=== PATIENT | female | born 1985 | race Caucasian/White ===

== ENCOUNTER 2016-03-29 10:22 | Inpatient (IN) ==
[2016-03-29] MEDS ORDERED: ACETAMINOPHEN 325 MG TABLET PO PRN (10:43)
[2016-03-29 12:06] LABS: Basophils % 0.2 % (0.0-0.8); Eosinophils # 0.1 10*3/uL (0.0-0.87); Eosinophils % 1.1 % (0.00-10.9); Hematocrit 33.4 VOL% (35.7-47.0); Hemoglobin 10.9 GM/DL (12.0-16.0); Immature Granulocytes % 1.7 %; Immature Granulocytes Absolute 0.17 #; Lymphocytes # 1.7 10*3/uL (1.4-4.0); Lymphocytes % 16.8 % (21.3-54.2); Mean Corpuscular HGB Conc 32.6 GM/DL (32-36); Mean Corpuscular Hemoglobin 31 PG (27-34); Mean Corpuscular Volume 93.6 FL (87-102); Mean Platelet Volume 11.9 FL (9.6-12.0); Monocytes # 0.4 10*3/uL (0.11-0.8); Monocytes % 4.2 % (1.7-12.7); Neutrophils # 7.8 10*3/uL (1.4-7.4); Platelet Count 142 T/CUMM (130-400); Red Blood Count 3.57 MC/CUMM (3.8-5.5); Red Cell Distribution Width 14.1 % (9.3-17.3); White Blood Count 10.2 T/CUMM (4-12)
[2016-03-29 12:27] LABS: PT Patient Result 10.2 SECS; Partial Thromboplastin Time 25.9 SECS (0-40)
[2016-03-29 12:45] LABS: Alanine Aminotransferase 11 U/L (13-56); Albumin 2.8 G/DL (3.4-5.0); Alkaline Phosphatase 139 U/L (45-117); Aspartate Amino Transferase 8 U/L (0-37); Bilirubin,Total < 0.39 MG/DL (0.2-1.0); Blood Urea Nitrogen 5 MG/DL (7-18); Calcium 8.8 MG/DL (8.5-10.1); Glucose 72 MG/DL (74-106); Potassium 4.1 MMOL/L (3.5-5.1); Sodium 143 MMOL/L (136-145); Total Protein 6.1 G/DL (6.4-8.3); Uric Acid 4.8 MG/DL (2.6-6.0)
[2016-03-29] MEDS ORDERED: ALUMINUM/MAGNES/SIMETH MAX STR 30 ML UDCUP PO PRN (16:23)
--- NOTE | 2016-03-29 17:25 | Event Note ---
NST reviewed. cat 1, irregular contractions noted
[2016-03-29] MEDS: oxyCODONE/ACETAMINOPHEN 5-325 MG TABLET PO PRN (18:09)
--- NOTE | 2016-03-30 09:36 | Ultrasound Report ---
Exam: US OB limited Date: 03/30/2016 8:48 AM Comparison: 03/27/2016 Indication: EFW, position Technique:[Multiple transabdominal real-time scans were obtained of the pelvis. Ultrasound images were captured and stored.] Findings: Single intrauterine fetus in cephalic presentation with heart rate 142 BPM. The posterior placenta is not low lying in position. Maternal ovaries are not identified. No detail survey scans were obtained. Measurements obtained are as follows: BPD 36 weeks 1 day HC 36 weeks 5 days AC 36 weeks 4 days FL 37 weeks 4 days EFW 6 lbs. 11 oz. +/- 1 pound 0 ounces GP 57.6% NETTIE 85.2 mm FL/HC out of range Impression: Single intrauterine fetus in a cephalic presentation at 36 weeks 5 days +/- 2 weeks 4 days with EDC 04/22/2016. EDC prior exam 04/22/2016. FL/HC out of range which is of questionable significance but follow-up scans may be helpful for further evaluation. PROCEDURE INTERPRETED AT [facility] DEPARTMENT OF RADIOLOGY Final Report Signed by: Dr. Deisy Haji
--- NOTE | 2016-03-30 13:00 | OB/GYN Progress Note ---
Assessment and Plan (1) Preeclampsia Status: Acute Assessment and plan: IUP at 36 weeks 6 days BPs are stable and headaches are stable. awaiting 24 hour urine collection Current Visit: Yes (2) labor Status: Acute Assessment and plan: IUP at 36 wk 6 days. contractions irregular and minimal to no cervical change. 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 She is still feeling contractions. 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 - Constitutional Vitals: Vital Signs Temp Pulse Resp BP Pulse Ox 03/30/16 03:00 97.9 F 88 17 117/55 98 03/29/16 23:00 97.1 F L 93 H 17 129/86 98 03/29/16 19:40 98 F 102 H 17 109/67 General appearance: normal weight, no acute distress - Antepartum / Post Antpartum Exam Cervix -Dilatation: 2-3 Effacement: 60 Station: -3 Rupture: intact Presentation: vertex Heart Rate: reassuring - Respiratory Respiratory exam: Absent: accessory muscle use - Cardiovascular Cardiovascular exam: Present: regular rate and rhythm - Extremities Exam Extremities exam: Absent: calf tenderness - Neurological Exam Neurological exam: Present: alert, oriented X3 - Psychiatric Psychiatric exam: Present: normal affect, normal mood - Skin Skin exam: Present: normal color Results - Labs CBC & BMP: 03/29/16 11:53 03/29/16 11:53 - Diagnostic Findings Procedure: Uterus-Nonstress Test: other (irregular contractions cat 1)
[2016-03-30 14:37] LABS: Collection Time,Urine 24 HOURS; Total Volume,Urine 950 ML (400-2000)
[2016-03-30 14:49] LABS: Total Protein 24 Hr Ur Result 617 MG/24HR (0-149.1)
[2016-03-30 14:56] LABS: Creatinine 24 Hr Urine Result 1.49 G/24HR (0.60-1.80); Creatinine Clearance Urine 163.39 ML/MIN (70-115)
[2016-03-30] MEDS: oxyCODONE/ACETAMINOPHEN 5-325 MG TABLET PO PRN (15:02)
[2016-03-30] MEDS ORDERED: LACTATED RINGERS 1,000 ML IV ONE (16:25)
[2016-03-30 16:55] LABS: Basophils % 0.3 % (0.0-0.8); Eosinophils # 0.1 10*3/uL (0.0-0.87); Eosinophils % 1.6 % (0.00-10.9); Hematocrit 30.9 VOL% (35.7-47.0); Hemoglobin 10.4 GM/DL (12.0-16.0); Immature Granulocytes Absolute 0.17 #; Lymphocytes # 1.7 10*3/uL (1.4-4.0); Mean Corpuscular HGB Conc 33.7 GM/DL (32-36); Mean Corpuscular Hemoglobin 31 PG (27-34); Mean Corpuscular Volume 90.9 FL (87-102); Mean Platelet Volume 11.9 FL (9.6-12.0); Monocytes # 0.4 10*3/uL (0.11-0.8); Monocytes % 4.9 % (1.7-12.7); Neutrophils # 6.1 10*3/uL (1.4-7.4); Neutrophils % 71.2 % (38.7-73.9); Platelet Count 145 T/CUMM (130-400); Red Cell Distribution Width 14.2 % (9.3-17.3); White Blood Count 8.6 T/CUMM (4-12)
[2016-03-30 17:26] LABS: Albumin 2.8 G/DL (3.4-5.0); Bilirubin,Total 0.6 MG/DL (0.2-1.0); Calcium 8.7 MG/DL (8.5-10.1); Osmolality,Calculated 284.8 MOS/KG (273-304); Potassium 3.7 MMOL/L (3.5-5.1)
--- NOTE | 2016-03-30 17:34 | Event Note ---
Spoke with Dr. Hernandez in [place] regarding the pt. he has seen her in his office before. I explained the pt's situation including a low normal platelet count, mildly elevated BPs, new onset proteinuria which has progressively gotten worse over the past few weeks and the pt's persistant headaches. Dr. ortiz agreed that we should deliver at 37 weeks which is tomorrow. We will cerivdil the pt and start pitocin in the morning. the pt agrees with the plan.
[2016-03-30] MEDS: ONDANSETRON 4 MG/2 ML VIAL IV PRN (21:50)
[2016-03-30] MEDS ORDERED: DINOPROSTONE 10 MG VAG.INSERT VAG ONE (22:00)
[2016-03-30] MEDS: LACTATED RINGERS 1,000 ML IV SCH (22:09)
[2016-03-31] MEDS: BUTORPHANOL 2 MG/ML VIAL IV PRN ×2 (00:08→05:35)
[2016-03-31] MEDS: ONDANSETRON 4 MG/2 ML VIAL IV PRN ×2 (07:48→12:40)
[2016-03-31] MEDS: OXYTOCIN/LR 20 UNIT/1,000 ML BAG IV SCH ×2 (08:10→16:59)
--- NOTE | 2016-03-31 08:34 | Event Note ---
pelvic 60/-2 vertex AROM scant amount fluid
[2016-03-31] MEDS ORDERED: CITRIC ACID/SODIUM CITRATE 30 ML UDCUP PO ONE (09:23)
[2016-03-31] MEDS ORDERED: ePHEDrine 50 MG/ML AMP IV PRN (09:23)
[2016-03-31] MEDS ORDERED: FAMOTIDINE 20 MG/2 ML VIAL IV ONE (09:23)
[2016-03-31] MEDS ORDERED: fentaNYL 2 MCG/ROPIV 0.2% EPID 150 ML EPIDURAL SCH (09:24)
[2016-03-31] MEDS: LACTATED RINGERS 1,000 ML IV SCH (10:30)
--- NOTE | 2016-03-31 14:37 | Operative Note ---
Date of procedure: 03/31/16 Pre-op diagnosis: IUP at 37 wks, PIH, Protein S deficiency Post-op diagnosis: same Procedure: The patient was brought in for observation and was noted to have proteinuria and elevated blood pressures and low platelets it was decided to proceed with an induction with Cervidil and Pitocin as per recommended by maternal medicine in [place] who had seen the patient in the office due to protein S deficiency. The patient progressed to completely dilated and started pushing without any problems the infant did show some variables near the end while pushing but once the episiotomy was cut and the baby delivered atraumatically. SAVD over midline episiotomy without any complications. Infant girl with Apgars of 8 and 9 weight was 6 pounds. The placenta delivered spontaneous. The repair was done using 3-0 Vicryl in the usual fashion and hemostasis was assured. Anesthesia: epidural Surgeon / Physician: Marilee España Estimated blood loss: other (200) Specimens: none sent Condition: stable Results - Labs CBC & BMP: 03/30/16 16:41 03/30/16 16:41 Discharge Plan - Discharge Medications No Action Metoclopramide Tab [Reglan Tab] 10 mg PO BID Pnv95/Ferrous Fumarate/FA [ Tablet] 1 each PO DAILY Heparin Sodium,Porcine/Pf [Heparin Sod 5,000 Unit/ 0.5 ml] 10,000 units SUBCUT BID - Follow Up or Referral - Forms/Instructions
[2016-03-31 14:44] LABS: Apearance,Urine CLEAR (Clear); Bilirubin,Urine Negative (Negative); Blood, Urine Negative (Negative); Glucose,Urine (UA) Negative (Negative); Ketones,Urine Negative (Negative); Nitrite,Urine Negative (Negative); Protein,Urine Negative; Renal Epithelial Cells,Urine Occasional /HPF (<1); Squamous Epithelial Cell,Urine Occasional /HPF (0-10); Urine Color Straw (Yellow); Urine Specific Gravity 1.004 (1.001-1.035); Urine Urobilinogen < 2.0 EU/DL (0.2-1.0); WBC,Urine <1 /HPF (0-6)
--- NOTE | 2016-03-31 14:44 | Discharge Summary ---
Hospital Course - Hospital Course Hospital Course: The patient is a 30-year-old G2 1 now P1 who was admitted at 36 weeks and 4 days for observations due to persistent proteinuria and elevated blood pressures and a known protein S deficiency. She was watched for 24 hours prior to making a decision and noted that her 24-hour urine protein was over 600 mg and she had decreased urine output as well as mildly elevated blood pressures as well as low normal platlet count After reviewing the case was Dr. David Maradiaga it was decided the patient's condition met the criteria for preeclampsia and even atypical help syndrome. Due to this it was decided to proceed with induction. The patient received Cervidil and Pitocin and delivered a viable female at 37 weeks on 03/31/2016. The patient was to resume Lovenox but at a prophylactic dose rather than a therapeutic dose and the patient was made aware of this and was started on it in the hospital. Diagnosis - Discharge Diagnosis (1) Preeclampsia Status: Acute (2) labor Status: Acute (3) Protein S deficiency complicating , antepartum Status: Acute Specialty Discharge - Follow Up or Referrals Follow up with: Marilee España MD [Physician] - 1 Week (Call the office Sunday to make a 1 week follow up appointment) Discharge Plan - Discharge Data Disposition: Disch To Home/Self Care Condition at Discharge: Stable Discharge Diet: advance to your usual diet Activity: resume usual activities as tolerated Hygiene: may shower Weight Bearing at Discharge: full weight bearing Driving: no restrictions Contact your physician if you experience:: fever over 101, Difficulty voiding, Redness or swelling, Nausea/Vomiting, Shortness of breath, Bleeding, pain uncontrolled by pain medications - Discharge Medications New Enoxaparin [Lovenox] 40 mg SUBCUT Q24H #30 syringe HYDROcodone/ACETAMIN 5-325 [Alger 5-325] 1 - 2 tablet PO Q6H PRN #30 tablet PRN Reason: Abdominal Pain No Action Metoclopramide Tab [Reglan Tab] 10 mg PO BID Pnv95/Ferrous Fumarate/FA [ Tablet] 1 each PO DAILY Heparin Sodium,Porcine/Pf [Heparin Sod 5,000 Unit/ 0.5 ml] 10,000 units SUBCUT BID - Follow Up or Referral Follow Up: Marilee España MD [Physician] - 1 Week (Call the office Sunday to make a 1 week follow up appointment) - Forms/Instructions Instructions: Hydrocodone/Acetaminophen (By mouth), Enoxaparin (Injection), Perineal Care (DC), Vaginal Delivery (DC), Bleeding (DC), Sitz Bath (DC) Exam - Constitutional Vitals: Period Temp Pulse Resp BP Sys/Walker Pulse Ox Last 24 Hr 97 F-97.6 F 78-97 18-18 117-125/59-74 General appearance: normal weight, no acute distress - Respiratory Respiratory exam: Absent: accessory muscle use - Cardiovascular Cardiovascular exam: Present: regular rate and rhythm - GI/Abdominal GI/Abdominal exam: Absent: guarding, tenderness, rebound - Extremities Exam Extremities exam: Absent: calf tenderness - Neurological Exam Neurological exam: Present: alert, oriented X3 - Psychiatric Psychiatric exam: Present: normal affect, normal mood - Skin Skin exam: Present: normal color Discharge Results Procedures and tests throughout hospitalization: Pending Orders 03/31/16 12:12 Urinalysis Routine Labs on day of discharge: Labs from last 24 hours 03/30/16 03/30/16 03/30/16 16:41 16:41 16:41 WBC RBC Hgb Hct MCV MCH MCHC RDW Plt Count MPV Neut % (Auto) Lymph % (Auto) [place] % (Auto) Eos % (Auto) Baso % (Auto) Neut # (Auto) Lymph # (Auto) [place] # (Auto) Eos # (Auto) Baso # (Auto) Immature Gran % Nucleated RBC % Immature Gran # Nucleated RBCs # Sodium 144 Potassium 3.7 Chloride 107 Carbon Dioxide 24 Anion Gap 16.7 H BUN 7 Creatinine 0.70 GFR Calculation 149 BUN/Creatinine Ratio 10.00 Glucose 114 H Calculated Osmolality 284.8 Uric Acid 5.0 Calcium 8.7 Total Bilirubin 0.60 AST 9 ALT 11 L Alkaline Phosphatase 146 H Total Protein 6.0 L Albumin 2.8 L Globulin 3.2 Albumin/Globulin Ratio 0.8 L Urine Collection Time Urine Total Volume Ur Creatinine Timed Patient Height Patient Weight Creatinine Clearance Ur Total Protein 24 Hr Blood Type O POSITIVE Antibody Screen Negative 03/30/16 03/30/16 03/30/16 16:41 13:30 13:30 WBC 8.6 RBC 3.40 L Hgb 10.4 L Hct 30.9 L MCV 90.9 MCH 31 MCHC 33.7 RDW 14.2 Plt Count 145 MPV 11.9 Neut % (Auto) 71.2 Lymph % (Auto) 20.0 L [place] % (Auto) 4.9 Eos % (Auto) 1.6 Baso % (Auto) 0.3 Neut # (Auto) 6.1 Lymph # (Auto) 1.7 [place] # (Auto) 0.4 Eos # (Auto) 0.1 Baso # (Auto) 0.0 Immature Gran % 2.0 Nucleated RBC % 0.0 Immature Gran # 0.17 Nucleated RBCs # 0.00 Sodium Potassium Chloride Carbon Dioxide Anion Gap BUN Creatinine GFR Calculation BUN/Creatinine Ratio Glucose Calculated Osmolality Uric Acid Calcium Total Bilirubin AST ALT Alkaline Phosphatase Total Protein Albumin Globulin Albumin/Globulin Ratio Urine Collection Time 24 24 Urine Total Volume 950 950 Ur Creatinine Timed 1.49 Patient Height 68 Patient Weight 238 Creatinine Clearance 163.39 H Ur Total Protein 24 Hr 617 H Blood Type Antibody Screen DS: Provider Date of admission: 03/30/16 16:26 Primary care physician: . No PCP Attending physician on admission: Marilee Boggs- Consults: 03/30/16 16:26 Consult to Anesthesiology [CONS] Routine Consulting Provider: Reason for Anesthesiology: Epidural Consult Comment: Epidural for pain managment 03/30/16 18:00 Consult to Dietitian [CONS] Routine Reason for Dietitian: Diet Recommendations Discharging clinician: Marilee Boggs- Expected date of discharge: 04/02/16
[2016-03-31] MEDS: oxyCODONE/ACETAMINOPHEN 5-325 MG TABLET PO PRN ×2 (16:58→22:35)
[2016-03-31] MEDS ORDERED: BISACODYL 10 MG SUPP RECTAL PRN (18:36)
[2016-03-31] MEDS ORDERED: DIPH/TET/ACEL PERT BOOSTER VACCINE 0.5 ML VIAL IM ONE (18:36)
[2016-03-31] MEDS ORDERED: LANOLIN 50% CREAM 0.3 OZ TUBE TOP PRN (18:36)
[2016-03-31] MEDS ORDERED: MEASLES/MUMPS/RUBELLA VACCINE 0.5 ML VIAL SUBCUT ONE (18:36)
[2016-03-31] MEDS ORDERED: ONDANSETRON 4 MG/2 ML VIAL IV PRN (18:36)
[2016-03-31] MEDS ORDERED: RHO(D) IMMUNE GLOBULIN 300 MCG SYRINGE IM ONE (18:36)
[2016-03-31] MEDS ORDERED: HYDROCORTISONE 2.5% RECTAL CREAM 30 GM TUBE TOP PRN (18:36)
[2016-03-31] MEDS ORDERED: WITCH HAZEL PADS 100/JAR TOP PRN (18:36)
[2016-03-31] MEDS ORDERED: ACETAMINOPHEN 325 MG TABLET PO PRN (18:36)
[2016-03-31] MEDS ORDERED: OXYTOCIN/LR 20 UNIT/1,000 ML BAG IV ONE (18:36)
[2016-03-31] MEDS ORDERED: BENZOCAINE 20%/MENTHOL 0.5% SPRAY 56 GM CAN TOP PRN (18:36)
[2016-03-31] MEDS: IBUPROFEN 800 MG TABLET PO PRN (21:32)
[2016-03-31] MEDS: DOCUSATE SODIUM 100 MG CAPSULE PO SCH (21:32)
[2016-03-31] MEDS: ENOXAPARIN 40 MG/0.4 ML SYRINGE SUBCUT SCH (21:34)
[2016-04-01 06:00] LABS: Basophils % 0.2 % (0.0-0.8); Eosinophils # 0.1 10*3/uL (0.0-0.87); Eosinophils % 1.5 % (0.00-10.9); Hematocrit 25.5 VOL% (35.7-47.0); Hemoglobin 8.2 GM/DL (12.0-16.0); Immature Granulocytes % 1.5 %; Immature Granulocytes Absolute 0.14 #; Lymphocytes # 1.9 10*3/uL (1.4-4.0); Lymphocytes % 20.5 % (21.3-54.2); Mean Corpuscular HGB Conc 32.2 GM/DL (32-36); Mean Corpuscular Hemoglobin 30 PG (27-34); Mean Corpuscular Volume 93.4 FL (87-102); Monocytes # 0.5 10*3/uL (0.11-0.8); Monocytes % 5.4 % (1.7-12.7); Neutrophils # 6.7 10*3/uL (1.4-7.4); Neutrophils % 70.9 % (38.7-73.9); Platelet Count 122 T/CUMM (130-400); Red Blood Count 2.73 MC/CUMM (3.8-5.5); Red Cell Distribution Width 14.1 % (9.3-17.3); White Blood Count 9.5 T/CUMM (4-12)
--- NOTE | 2016-04-01 10:01 | OB/GYN Progress Note ---
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: Patient is doing well she is eating ambulating and voiding She is afebrile and her vital signs are stable blood pressures well controlled Her fundus is firm and contracted She has decreased lochia Assessment #1 day #1 doing well Plan continue present management Exam ACTING SECTION CHIEF - Constitutional Vitals: Vital Signs Temp Pulse Resp BP Pulse Ox 04/01/16 08:00 20 04/01/16 07:31 97.5 F L 90 18 113/63 96 04/01/16 04:00 97.4 F L 94 H 18 106/57 96 04/01/16 01:55 16 04/01/16 00:15 97.8 F 99 H 18 121/65 96 03/31/16 21:00 98.3 F 85 20 133/80 99 03/31/16 20:00 98.3 F 82 16 135/82 99 03/31/16 19:00 86 18 131/84 99 03/31/16 18:30 81 18 130/88 99 03/31/16 18:00 98.0 F 77 18 144/82 99 03/31/16 16:00 98 F 88 18 127/58 100 03/31/16 12:00 97.6 F 78 18 127/70 100 Results - Labs CBC & BMP: 04/01/16 04:55 03/30/16 16:41
[2016-04-01] MEDS: oxyCODONE/ACETAMINOPHEN 5-325 MG TABLET PO PRN ×2 (13:34→20:15)
[2016-04-01] MEDS: IBUPROFEN 800 MG TABLET PO PRN ×2 (13:34→20:15)
[2016-04-01] MEDS: DOCUSATE SODIUM 100 MG CAPSULE PO SCH (21:05)
[2016-04-01] MEDS: MAGNESIUM HYDROXIDE SUSP 30 ML UDCUP PO PRN (21:05)
[2016-04-01] MEDS: ENOXAPARIN 40 MG/0.4 ML SYRINGE SUBCUT SCH (21:05)
[2016-04-01] MEDS: SIMETHICONE CHEW 80 MG TABLET PO PRN (21:05)
[2016-04-02] MEDS: IBUPROFEN 800 MG TABLET PO PRN ×4 (01:59→20:35)
[2016-04-02] MEDS: oxyCODONE/ACETAMINOPHEN 5-325 MG TABLET PO PRN ×4 (01:59→20:36)
[2016-04-02] MEDS: DOCUSATE SODIUM 100 MG CAPSULE PO SCH ×2 (07:59→20:34)
--- NOTE | 2016-04-02 11:08 | OB/GYN Progress Note ---
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
[2016-04-02] MEDS: METOCLOPRAMIDE 10 MG TABLET PO SCH (19:40)
[2016-04-02] MEDS: ENOXAPARIN 40 MG/0.4 ML SYRINGE SUBCUT SCH (20:35)
[2016-04-02] MEDS: SIMETHICONE CHEW 80 MG TABLET PO PRN (20:35)
[2016-04-02] MEDS: MAGNESIUM HYDROXIDE SUSP 30 ML UDCUP PO PRN (20:35)
[2016-04-03] MEDS: oxyCODONE/ACETAMINOPHEN 5-325 MG TABLET PO PRN ×2 (03:55→11:11)
[2016-04-03] MEDS: METOCLOPRAMIDE 10 MG TABLET PO SCH (03:55)
[2016-04-03] MEDS: IBUPROFEN 800 MG TABLET PO PRN ×2 (03:55→11:10)
[2016-04-03 07:45] VITALS: BP 123/68
[2016-04-03] MEDS: DOCUSATE SODIUM 100 MG CAPSULE PO SCH (09:37)
== END 2016-04-03 12:17 | disposition home or self-care (01) | DRG 775 ==
LOC: N.LD → N.OB 03-31 18:00
PROVIDERS: ADMIT Obstetrics & Gynecology; ATTEND Obstetrics & Gynecology

== ENCOUNTER 2018-09-12 18:15 | Inpatient (IN) ==
[2018-09-12] MEDS ORDERED: ONDANSETRON 4 MG/2 ML VIAL IV PRN (18:46)
[2018-09-12] MEDS ORDERED: BUTORPHANOL 2 MG/ML VIAL IV PRN (18:46)
[2018-09-12] MEDS ORDERED: MEPERIDINE 50 MG/1 ML VIAL IV PRN (18:46)
[2018-09-12 19:11] LABS: Basophils # 0.1 10*3/uL (0.0-0.2); Basophils % 0.5 % (0.0-0.8); Eosinophils # 0.1 10*3/uL (0.0-0.87); Eosinophils % 1.3 % (0.00-10.9); Hematocrit 29.5 VOL% (35.7-47.0); Hemoglobin 9.5 GM/DL (12.0-16.0); Immature Granulocytes Absolute 0.18 #; Lymphocytes # 1.8 10*3/uL (1.4-4.0); Lymphocytes % 19.4 % (21.3-54.2); Mean Corpuscular HGB Conc 32.2 GM/DL (32-36); Mean Corpuscular Volume 90.2 FL (87-102); Mean Platelet Volume 11.4 FL (9.6-12.0); Monocytes % 4.3 % (1.7-12.7); Neutrophils % 72.5 % (38.7-73.9); Platelet Count 112 T/CUMM (130-400); Red Blood Count 3.27 MC/CUMM (3.8-5.5); Red Cell Distribution Width 13.3 % (9.3-17.3); White Blood Count 9.1 T/CUMM (4-12)
[2018-09-12] MEDS ORDERED: BETAMETH SODIUM PHOS/ACETATE 30 MG/5 ML VIAL IM SCH (19:30)
[2018-09-12 20:16] LABS: Albumin 2.5 G/DL (3.4-5.0); Bilirubin,Total 0.4 MG/DL (0.2-1.0); Calcium 8.5 MG/DL (8.5-10.1); Osmolality,Calculated 274.4 MOS/KG (273-304)
[2018-09-13] MEDS ORDERED: PROMETHAZINE 25 MG/1 ML VIAL IM ONE (02:44)
[2018-09-13] MEDS ORDERED: BUPIVACAINE 0.5% 50 ML VIAL ONE (08:00)
[2018-09-13] MEDS ORDERED: BETAMETH SODIUM PHOS/ACETATE 30 MG/5 ML VIAL IM SCH (08:32)
[2018-09-13] MEDS ORDERED: CITRIC ACID/SODIUM CITRATE 30 ML UDCUP PO ONE (08:47)
[2018-09-13] MEDS ORDERED: ceFAZolin 3,000 MG in SYRINGE 1 EACH IV ONE (08:47)
[2018-09-13] MEDS ORDERED: OXYTOCIN/LR 30 UNIT/1,000 ML BAG IV ONE (08:49)
[2018-09-13] MEDS ORDERED: OXYTOCIN 10 UNIT/ML VIAL IM ONE (08:49)
[2018-09-13] MEDS: LACTATED RINGERS 1,000 ML IV SCH (08:57)
[2018-09-13] MEDS ORDERED: LACTATED RINGERS 1,000 ML IV SCH (09:00)
[2018-09-13] MEDS ORDERED: FAMOTIDINE 20 MG/2 ML VIAL IV ONE (10:23)
[2018-09-13] MEDS ORDERED: diphenhydrAMINE 50 MG/1 ML VIAL IV PRN (10:23)
[2018-09-13] MEDS ORDERED: hydrOXYzine HCL 25 MG/1 ML VIAL IM PRN (10:23)
[2018-09-13] MEDS ORDERED: ePHEDrine 50 MG/ML AMP IV PRN (10:23)
[2018-09-13] MEDS ORDERED: ceFAZolin 2,000 MG in SYRINGE 1 EACH IV ONE (10:47)
[2018-09-13] MEDS ORDERED: TRANEXAMIC ACID 1,000 MG/10 ML VIAL ONE (11:13)
[2018-09-13] MEDS ORDERED: miSOPROStol 200 MCG TABLET ONE (11:13)
[2018-09-13] MEDS ORDERED: OXYTOCIN/LR 20 UNIT/1,000 ML BAG IV ONE ×2 (11:13→12:44)
[2018-09-13] MEDS ORDERED: METHYLERGONOVINE 0.2 MG/1 ML AMP ONE (11:13)
[2018-09-13 12:40] LABS: Cord Venous Blood HCO3 20.3 MMOL/L; Cord Venous Blood PCO2 42.8 MMHG; Cord Venous Blood PO2 21.5
[2018-09-13 12:40] LABS: Apearance,Urine CLEAR (Clear); Bilirubin,Urine Negative (Negative); Blood, Urine Small mg/dL (Negative); Glucose,Urine (UA) Negative (Negative); Ketones,Urine 80 mg/dL (Negative); Mucus,Urine Occasional /LPF (Occasional); Nitrite,Urine Negative (Negative); Protein,Urine 30 MG/DL; RBC,Urine 1 /HPF (0-4); Squamous Epithelial Cell,Urine Occasional /HPF (0-10); Urine Color Yellow (Yellow); Urine Urobilinogen < 2.0 EU/DL (0.2-1.0); WBC,Urine <1 /HPF (0-6)
[2018-09-13] MEDS ORDERED: RHO(D) IMMUNE GLOBULIN 300 MCG SYRINGE IM ONE (12:44)
[2018-09-13] MEDS ORDERED: ONDANSETRON 4 MG/2 ML VIAL IV PRN (12:44)
[2018-09-13] MEDS ORDERED: ACETAMINOPHEN 325 MG TABLET PO PRN (12:44)
[2018-09-13] MEDS ORDERED: MAGNESIUM HYDROXIDE SUSP 30 ML UDCUP PO PRN (12:44)
[2018-09-13 12:45] LABS: Cord Arterial Blood HCO3 19.4 MMOL/L
[2018-09-13] MEDS ORDERED: PHENYLEPHRINE 1 MG/10 ML SYRINGE IV ONE (15:31)
[2018-09-13] MEDS ORDERED: BUPIVACAINE SPINAL 0.75% 2 ML AMP SPINAL ONE (15:33)
[2018-09-13] MEDS ORDERED: MORPHINE 10 MG/10 ML VIAL ONE (15:33)
[2018-09-13 20:01] LABS: Basophils % 0.2 % (0.0-0.8); Hematocrit 29.9 VOL% (35.7-47.0); Hemoglobin 9.6 GM/DL (12.0-16.0); Immature Granulocytes % 1.7 %; Lymphocytes # 1.1 10*3/uL (1.4-4.0); Lymphocytes % 6.4 % (21.3-54.2); Mean Corpuscular HGB Conc 32.1 GM/DL (32-36); Mean Corpuscular Volume 90.3 FL (87-102); Monocytes % 3.7 % (1.7-12.7); Platelet Count 130 T/CUMM (130-400); Red Blood Count 3.31 MC/CUMM (3.8-5.5); Red Cell Distribution Width 13.1 % (9.3-17.3); White Blood Count 17.5 T/CUMM (4-12)
[2018-09-13] MEDS: DOCUSATE SODIUM 100 MG CAPSULE PO SCH (20:11)
[2018-09-13] MEDS: ceFAZolin 1,000 MG in SYRINGE 1 EACH IV SCH (20:11)
[2018-09-13] MEDS: IBUPROFEN 800 MG TABLET PO PRN (23:44)
[2018-09-14] MEDS: ENOXAPARIN 80 MG/0.8 ML SYRINGE SUBCUT SCH ×2 (00:59→14:24)
[2018-09-14] MEDS: ceFAZolin 1,000 MG in SYRINGE 1 EACH IV SCH (04:03)
[2018-09-14] MEDS: LACTATED RINGERS 1,000 ML IV SCH ×3 (05:49→05:51)
[2018-09-14 05:51] LABS: Basophils % 0.2 % (0.0-0.8); Hematocrit 25.9 VOL% (35.7-47.0); Hemoglobin 8.5 GM/DL (12.0-16.0); Immature Granulocytes % 2.4 %; Immature Granulocytes Absolute 0.38 #; Lymphocytes # 1.4 10*3/uL (1.4-4.0); Lymphocytes % 9.2 % (21.3-54.2); Mean Corpuscular HGB Conc 32.8 GM/DL (32-36); Mean Corpuscular Volume 90.9 FL (87-102); Mean Platelet Volume 12.2 FL (9.6-12.0); Monocytes % 4.3 % (1.7-12.7); NRBC # 0.02 10*3/uL; Neutrophils % 83.9 % (38.7-73.9); Platelet Count 137 T/CUMM (130-400); Red Blood Count 2.85 MC/CUMM (3.8-5.5); Red Cell Distribution Width 13.2 % (9.3-17.3); White Blood Count 15.7 T/CUMM (4-12)
[2018-09-14] MEDS: FERROUS SULFATE 325 MG TABLET PO SCH ×2 (08:22→20:08)
[2018-09-14] MEDS: SIMETHICONE CHEW 80 MG TABLET PO PRN ×2 (08:22→20:08)
[2018-09-14] MEDS: MULTIVITAMIN (PRENATAL) TABLET PO SCH (08:22)
[2018-09-14] MEDS: DOCUSATE SODIUM 100 MG CAPSULE PO SCH ×2 (08:22→20:08)
[2018-09-14] MEDS: METOCLOPRAMIDE 10 MG TABLET PO SCH ×2 (08:23→17:06)
[2018-09-14] MEDS: MAGNESIUM HYDROXIDE SUSP 30 ML UDCUP PO SCH ×2 (08:27→20:07)
[2018-09-14 12:05] LABS: Basophils % 0.1 % (0.0-0.8); Eosinophils % 0.1 % (0.00-10.9); Hematocrit 25.2 VOL% (35.7-47.0); Hemoglobin 8.1 GM/DL (12.0-16.0); Immature Granulocytes % 2.3 %; Immature Granulocytes Absolute 0.32 #; Lymphocytes # 1.6 10*3/uL (1.4-4.0); Mean Corpuscular HGB Conc 32.1 GM/DL (32-36); Mean Corpuscular Volume 91.3 FL (87-102); Mean Platelet Volume 11.7 FL (9.6-12.0); Monocytes % 5.3 % (1.7-12.7); NRBC # 0.02 10*3/uL; Neutrophils % 80.2 % (38.7-73.9); Platelet Count 137 T/CUMM (130-400); Red Blood Count 2.76 MC/CUMM (3.8-5.5); Red Cell Distribution Width 13.3 % (9.3-17.3); White Blood Count 13.7 T/CUMM (4-12)
[2018-09-14] MEDS: IBUPROFEN 800 MG TABLET PO PRN (20:08)
[2018-09-15] MEDS: ENOXAPARIN 80 MG/0.8 ML SYRINGE SUBCUT SCH ×2 (01:26→12:50)
[2018-09-15] MEDS: METOCLOPRAMIDE 10 MG TABLET PO SCH ×3 (01:26→17:58)
[2018-09-15] MEDS: IBUPROFEN 800 MG TABLET PO PRN ×2 (07:21→15:05)
[2018-09-15] MEDS: MULTIVITAMIN (PRENATAL) TABLET PO SCH (09:24)
[2018-09-15] MEDS: MAGNESIUM HYDROXIDE SUSP 30 ML UDCUP PO SCH ×2 (09:24→22:06)
[2018-09-15] MEDS: DOCUSATE SODIUM 100 MG CAPSULE PO SCH ×2 (09:24→22:08)
[2018-09-15] MEDS: FERROUS SULFATE 325 MG TABLET PO SCH ×2 (09:25→22:06)
[2018-09-15] MEDS: SERTRALINE 25 MG TABLET PO SCH (22:05)
[2018-09-16] MEDS: METOCLOPRAMIDE 10 MG TABLET PO SCH (01:30)
[2018-09-16] MEDS: IBUPROFEN 800 MG TABLET PO PRN ×2 (01:33→21:34)
[2018-09-16] MEDS: ENOXAPARIN 80 MG/0.8 ML SYRINGE SUBCUT SCH ×2 (01:33→13:13)
[2018-09-16] MEDS: FERROUS SULFATE 325 MG TABLET PO SCH ×2 (09:19→21:34)
[2018-09-16] MEDS: DOCUSATE SODIUM 100 MG CAPSULE PO SCH ×2 (09:20→21:34)
[2018-09-16] MEDS: MULTIVITAMIN (PRENATAL) TABLET PO SCH (09:20)
[2018-09-16] MEDS: MAGNESIUM HYDROXIDE SUSP 30 ML UDCUP PO SCH ×2 (09:26→23:52)
[2018-09-16] MEDS: SERTRALINE 25 MG TABLET PO SCH (21:34)
[2018-09-17] MEDS: ENOXAPARIN 80 MG/0.8 ML SYRINGE SUBCUT SCH (01:30)
[2018-09-17 07:37] VITALS: BP 137/71
[2018-09-17] MEDS ORDERED: DIPH/TET/ACEL PERT BOOSTER VACCINE 0.5 ML VIAL IM ONE (10:28)
[2018-09-17] MEDS: IBUPROFEN 800 MG TABLET PO PRN (10:51)
== END 2018-09-17 14:20 | disposition home or self-care (01) | DRG 786 ==
LOC: N.LDOUT 18:15 → N.LD 18:17 → N.OB 09-13 16:04
PROVIDERS: ADMIT Obstetrics & Gynecology; ATTEND Obstetrics & Gynecology
PROC: LDCSECT (ICD-10-PCS; 2018-09-13 11:30)